=== PATIENT | female | born 1990 | race Hispanic/Latino ===

== ENCOUNTER 2017-02-21 14:46 | Inpatient (IN) | payer MEDICAID, OTHER ==
[2017-02-21 16:30] LABS: BASO # 0.2 K/uL (0.0-0.2); BASO % 1.6 % (0.0-2.0); EOS % 0.4 % (0.0-4.0); HEMATOCRIT 45.7 % (34.0-47.0); LYMPH # 1.6 K/uL (1.0-4.3); LYMPH % 14.3 % (20.0-40.0); MEAN CORPUSCULAR HEMOGLOBIN 30.6 pg (27.0-31.0); MEAN CORPUSCULAR HGB CONC 32.9 g/dL (33.0-37.0); MEAN PLATELET VOLUME 9.1 fL (7.2-11.7); MONO # 0.5 K/uL (0.0-0.8); MONO % 4.4 % (0.0-10.0); WHITE BLOOD COUNT 11.5 K/uL (4.8-10.8)
[2017-02-21 16:44] LABS: RBC URINE 3 /hpf (0-3); URINE BACTERIA RARE (<OCC); URINE BILIRUBIN NEGATIVE (NEGATIVE); URINE BLOOD NEGATIVE (NEGATIVE); URINE COLOR Amber (YELLOW); URINE GLUCOSE (UA) NORMAL (Normal); URINE KETONE TRACE mg/dL (NEGATIVE); URINE LEUKOCYTE ESTERASE NEG Leu/uL (Negative); URINE PROTEIN 2+ mg/dL (NEGATIVE); URINE UROBILINOGEN NORMAL mg/dL (0.2-1.0); WBC URINE 9 /hpf (0-5)
--- NOTE | 2017-02-21 16:52 | C.PDOC ---
History Of Present Illness 26 y/o female presents to the ER for detox from heroin, cocaine, and marijuana abuse. Patient states that she uses 10 bags of heroin up her nose each day. She also states that she takes 1 gram of cocaine each day and 1 marijuana blunt each day. Time Seen by Provider: 02/21/17 15:21 Chief Complaint (Nursing): Psychiatric Evaluation History Per: Patient Onset/Duration Of Symptoms: Hrs Current Symptoms Are (Timing): Still Present Past Medical History Reviewed: Historical Data, Nursing Documentation, Vital Signs Vital Signs: Last Vital Signs Temp 99.0 F 02/21/17 17:52 Pulse 71 02/21/17 17:52 Resp 16 02/21/17 19:08 BP 101/54 L 02/21/17 17:52 Pulse Ox 100 02/21/17 18:06 - Medical History PMH: No Chronic Diseases Surgical History: No Surg Hx Family History: States: No Known Family Hx - Social History Hx Alcohol Use: Yes Hx Substance Use: Yes - Immunization History Hx Tetanus Toxoid Vaccination: No Hx Influenza Vaccination: No Hx Pneumococcal Vaccination: No Review Of Systems Except As Marked, All Systems Reviewed And Found Negative. Physical Exam - Physical Exam Appears: Other (no apparent distress, calm, cooperative) Skin: Other (no tract shannon) Eye(s): bilateral: Abnormal Pupil (dilated pupils) Neck: Supple Chest: Symmetrical Cardiovascular: Rhythm Regular Respiratory: Normal Breath Sounds, No Accessory Muscle Use Neurological/Psych: Oriented x3, Normal Speech, Normal Cognition ED Course And Treatment - Laboratory Results Result Diagrams: 02/21/17 16:11 02/21/17 16:11 Lab Interpretation: Abnormal (tox + cannabanoids, cocaine, opiates) Urine POC: Negative O2 Sat by Pulse Oximetry: 100 Pulse Ox Interpretation: Normal Progress Note: Case discussed with crisis counselor. Pending evaluation. Reevaluation Time: 18:04 Reassessment Condition: Improved - Physician Consult Information Outcome Of Conversation: d/w Crisis Evaluators ok to Adm to Psych Medical Decision Making Medical Decision Making: Impression: Detox from Heroin, Cocaine, and Marijuana Use Plan: Urine Drug Screen cocaine, cannabis and heroine abuse, no tract shannon, suicidal/depression Disposition Doctor Will See Patient In The: Hospital Counseled Patient/Family Regarding: Studies Performed, Diagnosis - Disposition Disposition: HOSPITALIZED Disposition Time: 18:05 Condition: GOOD - Clinical Impression Clinical Impression: Depression, Polysubstance (including opioids) dependence with physiol dependence - Scribe Statement The provider has reviewed the documentation as recorded by the Scribe Linette Roper Provider Attestation: All medical record entries made by the Scribe were at my direction and personally dictated by me. I have reviewed the chart and agree that the record accurately reflects my personal performance of the history, physical exam, medical decision making, and the department course for this patient. I have also personally directed, reviewed, and agree with the discharge instructions and disposition.
[2017-02-21 16:53] LABS: ALCOHOL SERUM < 10 mg/dl (0-10); ALKALINE PHOSPHATASE 46 U/L (38-126); ALT/SGPT 35 U/L (9-52); AST/SGOT 21 U/L (14-36); BILIRUBIN,TOTAL 0.5 mg/dL (0.2-1.3); BLOOD UREA NITROGEN 16 mg/dL (7-17); CALCIUM 8.9 mg/dl (8.6-10.4); CARBON DIOXIDE 31 mmol/L (22-30); CHLORIDE 103 mmol/L (98-107); GFR AFRICAN-AMERICAN > 60; GLUCOSE,RANDOM 118 mg/dL (65-105); POTASSIUM 3.8 mmol/L (3.6-5.2); SODIUM 141 mmol/L (132-148); TOTAL PROTEIN 8.8 g/dL (6.3-8.3)
[2017-02-21 16:55] LABS: ALB/GLOB RATIO 1.1 (1.0-2.1)
--- NOTE | 2017-02-21 19:31 | PCM.BM ---
<Carola Browning - Last Filed: 02/21/17 19:28> Treatment Plan Problems - Problems identified on initial assessmt Depression Date Initiated: 02/21/17 Time Initiated: 19:29 Assessment reference: NA Status: Active Substance Abuse Date Initiated: 02/21/17 Time Initiated: 19:29 Assessment reference: NA Status: Active Suicidal, Adeation Date Initiated: 02/21/17 Time Initiated: 19:29 Assessment reference: NA Status: Active Treatment assets and liabiliti Patient Assests: adapts well, cooperative, self-reliant, ADL independent, physically healthy, negotiates basic needs, cognitively intact Patient Liabilities: live alone (Lived with boyfriend but loss apartment), financial problems (Loss jod and Apartment), substance abuse (Opiates, Cocaine, THC. 10-20 bags of Heroin daily) - Milieu Protocol Maintain good personal hygiene: daily Encourage regular showers, daily Remind patient to perform daily oral care, every shift Assist patient to perform ADL's (Self), other Assist patient to perform ADL's Conduct patient checks and document Observation sheet: Q15 minutes (Safety) Maintain personal safety: every shift Educate patient to report safety concerns to staff, every shift Monitor environment for contraband/sharps Medication safety: Monitor for expected outcome, potential side effects: every shift, Assess barriers to learning: every shift, Assess readiness for medication education: every shift <Tatyana Bajwa - Last Filed: 02/23/17 11:05> - Diagnosis (1) Bipolar affective, depress, severe Status: Acute Interventions: 02/23/17 11:06 * Assess/adjust medications daily and /or as needed * See patient on an individual basis 7x/week to assess level of manic behaviors and stability * Discuss risks, benefits, side effects and alternatives of medications * (2) Opioid use disorder, severe, dependence Status: Acute Interventions: 02/23/17 11:06 * Assess 7x/week regarding severity of withdrawal * Educate regarding risks, benefits, side effects and alternatives of medications * Use Motivational Interviewing for abstinence * Use CBT for relapse prevention * Medication management for withdrawal symptoms * Encourage medication assisted treatment * <Glory Singleton - Last Filed: 02/23/17 11:14> Family Contact Family involvement: Famliy/SO not involved - Goals for Treatment Patient goals for treatment: "I want to go to rehab." Discharge/Continuing Care - Education Needs Education Needs: Patient Medication, Patient Coping Skills, Patient Placement options, Patient Community resources - Discharge Discharge Criteria: Tolerates medication w/o severe side effects, Free of Suicidal thoughts, No longer exhibiting s/s of withdrawal, Reduction of target symptoms Discharge to:: Substance Abuse Rehab - Treatment Team Participation Discussed with Family/SO: No Was Patient/Family/SO present at Treatment Team Meeting: Yes
[2017-02-22] MEDS ORDERED: Buprenorphine Hydrochloride 8 mg SL ONE (01:57)
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
--- NOTE | 2017-02-23 11:06 | PCM.PYCHPN ---
Psychiatric Progress Note - Psychiatric Progress Note Patient seen today, length of contact: 15 min Patient Chief Complaint: I am feeling very irritable.' Problems Identified/Issues Discussed: Patient seen and evaluated, chart reviewed and discussed with the nurse. Patient remained very irritable and agitated. She was speaking to her mother over the phone and suddenly she started yelling and cursing. She reports racing of thoughts and flight of ideas. Patient reports withdrawal symptoms including nausea, headaches, cramps and sweating. She also reports depressed mood and at times feelings of hopelessness and helplessness. Patient is compliant with medications and denies any side effects. Symptoms are improving but need more time to stabilize. Support and psychoeducation given. Medication Change: Yes (subutax taper) Medical Record Reviewed: Yes Mental Status Examination - Cognitive Function Orientation: Person, Place, Situation, Time Memory: Intact Attention: WNL Concentration: Poor Association: WNL Fund of Knowledge: Poor - Mood Mood: Depressed, Anxious - Affect Affect: Broad, Depressed - Speech Speech: Loud, Pressured - Formal Thought Process Formal Thought Process: Circumstantial - Suicidal Ideation Suicidal Ideation: No - Homicidal Ideation Homicidal Ideation: No Goal/Treatment Plan - Goal/Treatment Plan Need for Continued Stay: Discharge may exacerbated symptoms, Severe functional impairment Progress Toward Problem(s) and Goals/Treatment Plan: Bipolar depressed severe without psychotic features Opioid use disorder severe Opioid withdrawal Lexapro 10 mg po daily Subutex taper for opioid detox Patient educated about risks, benefits, side effects & alternatives of meds. Pt verbalized understanding & agreed with the above treatment plan. Therapy in milieu. Attend groups and activities [place] for abstinence and CBT for relapse prevention Support and psychoeducation Refer to after care Start [place] 300 mg PO TID Trazodone 50 gm PO QHS - Smoking Cessation Smoking Cessation Initiated: No
[2017-02-23] MEDS: Buprenorphine Hydrochloride 2 mg SL SCH (14:40)
[2017-02-24] MEDS ORDERED: Influenza Vaccine 60 mcg/0.5 mL SYR (4YR UP) IM ONE (10:00)
[2017-02-24] MEDS ORDERED: Pneumococcal 23-Valent Vaccine IM ONE (10:00)
[2017-02-24] MEDS: Buprenorphine Hydrochloride 2 mg SL SCH (10:05)
--- NOTE | 2017-02-24 11:48 | PCM.PYCHPN ---
Psychiatric Progress Note - Psychiatric Progress Note Patient seen today, length of contact: 15 min Patient Chief Complaint: my anxiety is little better. ' Problems Identified/Issues Discussed: Patient seen and evaluated, chart reviewed and discussed with the nurse. Staff reports that pt remained irritable and agitated, but to a lesser extent than before. She reports some improvement in her mood and reports some improvement in the racing of thoughts. Patient still reports withdrawal symptoms including nausea, headaches, cramps and sweating. Patient is compliant with medications and denies any side effects. Symptoms are improving but need more time to stabilize. Support and psychoeducation given. Medication Change: Yes (subutax taper, change lithium) Medical Record Reviewed: Yes Mental Status Examination - Cognitive Function Orientation: Person, Place, Situation, Time Memory: Intact Attention: WNL Concentration: Poor Association: WNL Fund of Knowledge: Poor - Mood Mood: Depressed, Anxious - Affect Affect: Constricted, Depressed - Speech Speech: Appropriate - Formal Thought Process Formal Thought Process: No Impairment - Suicidal Ideation Suicidal Ideation: No - Homicidal Ideation Homicidal Ideation: No Goal/Treatment Plan - Goal/Treatment Plan Need for Continued Stay: Remain at risks for inpatient hospitalization, Severe functional impairment Progress Toward Problem(s) and Goals/Treatment Plan: Bipolar depressed severe without psychotic features Opioid use disorder severe Opioid withdrawal Lexapro 10 mg po daily Subutex taper for opioid detox Patient educated about risks, benefits, side effects & alternatives of meds. Pt verbalized understanding & agreed with the above treatment plan. Therapy in milieu. Attend groups and activities [place] for abstinence and CBT for relapse prevention Support and psychoeducation Refer to after care Change [place] to 450 mg PO QHS Trazodone 50 gm PO QHS - Smoking Cessation Smoking Cessation Initiated: No
[2017-02-25] MEDS: Buprenorphine Hydrochloride 2 mg SL SCH (10:11)
[2017-02-25] MEDS: Lithium Carbonate 150 MG CAP PO SCH ×2 (11:07→17:22)
--- NOTE | 2017-02-25 11:41 | PCM.PYCHPN ---
Psychiatric Progress Note - Psychiatric Progress Note Patient seen today, length of contact: 16 min Patient Chief Complaint: I am feeling little better.' Problems Identified/Issues Discussed: Patient seen and evaluated, chart reviewed and discussed with the nurse. Patient reports some improvement in her mood and reports some improvement in the racing of thoughts. She reports that the lithium is working. Patient reports improvement in her withdrawal symptoms but still reports anxiety, headaches, and sweating. Had a family meeting with the pt.'s mother who wants pt to go to an inpt rehab, [facility] Patient is compliant with medications and denies any side effects. Symptoms are improving but need more time to stabilize. Support and psychoeducation given. Medication Change: Yes (Subutax taper, lithium level) Medical Record Reviewed: Yes Mental Status Examination - Cognitive Function Orientation: Person, Place, Situation, Time Memory: Intact Attention: WNL Concentration: WNL Association: WNL Fund of Knowledge: Poor - Mood Mood: Anxious - Affect Affect: Constricted - Speech Speech: Soft - Formal Thought Process Formal Thought Process: No Impairment - Suicidal Ideation Suicidal Ideation: No - Homicidal Ideation Homicidal Ideation: No Goal/Treatment Plan - Goal/Treatment Plan Need for Continued Stay: Severe depression anxiety, Severe functional impairment Progress Toward Problem(s) and Goals/Treatment Plan: Bipolar depressed severe without psychotic features Opioid use disorder severe Opioid withdrawal Lexapro 10 mg po daily Subutex taper for opioid detox Patient educated about risks, benefits, side effects & alternatives of meds. Pt verbalized understanding & agreed with the above treatment plan. Therapy in milieu. Attend groups and activities [place] for abstinence and CBT for relapse prevention Support and psychoeducation Refer to after care [place] 450 mg PO QHS Trazodone 50 gm PO QHS - Smoking Cessation Smoking Cessation Initiated: No
--- NOTE | 2017-02-25 14:52 | RAD ---
HISTORY: pending discharge COMPARISON: No prior. TECHNIQUE: Chest PA and lateral FINDINGS: LUNGS: No active pulmonary disease. PLEURA: No significant pleural effusion identified. No pneumothorax apparent. CARDIOVASCULAR: Normal. OSSEOUS STRUCTURES: No significant abnormalities. VISUALIZED UPPER ABDOMEN: Normal. OTHER FINDINGS: None. IMPRESSION: No active disease.
[2017-02-26] MEDS: Buprenorphine Hydrochloride 2 mg SL SCH (09:55)
[2017-02-26] MEDS: Lithium Carbonate 150 MG CAP PO SCH ×2 (10:07→18:09)
--- NOTE | 2017-02-26 12:06 | PCM.PYCHPN ---
Psychiatric Progress Note - Psychiatric Progress Note Patient seen today, length of contact: 16 min Patient Chief Complaint: I am feeling better.' Problems Identified/Issues Discussed: Patient seen and evaluated, chart reviewed and discussed with the nurse. Patient improvement in her mood and withdrawal symptoms but still reports anxiety, and sweating. Patient reports some improvement in irritability, agitation and racing of thoughts. SW is working on rehabilitation. Chest x-ray was completed yesterday and blood was drawn for lithium level. Patient is compliant with medications and denies any side effects. Symptoms are improving but need more time to stabilize. Support and psychoeducation given. Medication Change: Yes (Subutax taper, lithium level) Medical Record Reviewed: Yes Mental Status Examination - Cognitive Function Orientation: Person, Place, Situation, Time Memory: Intact Attention: WNL Concentration: WNL Association: WNL Fund of Knowledge: Poor - Mood Mood: Anxious - Affect Affect: Constricted - Speech Speech: Soft - Formal Thought Process Formal Thought Process: No Impairment - Suicidal Ideation Suicidal Ideation: No - Homicidal Ideation Homicidal Ideation: No Goal/Treatment Plan - Goal/Treatment Plan Need for Continued Stay: Severe depression anxiety, Severe functional impairment Progress Toward Problem(s) and Goals/Treatment Plan: Bipolar depressed severe without psychotic features Opioid use disorder severe Opioid withdrawal Lexapro 10 mg po daily Subutex taper for opioid detox Patient educated about risks, benefits, side effects & alternatives of meds. Pt verbalized understanding & agreed with the above treatment plan. Therapy in milieu. Attend groups and activities [place] for abstinence and CBT for relapse prevention Support and psychoeducation Refer to after care [place] 450 mg PO BID Trazodone 50 gm PO QHS - Smoking Cessation Smoking Cessation Initiated: No
[2017-02-27] MEDS ORDERED: Buprenorphine Hydrochloride 2 mg SL SCH (09:19)
--- NOTE | 2017-02-27 10:02 | PCM.PYCHPN ---
Psychiatric Progress Note - Psychiatric Progress Note Patient seen today, length of contact: 16 min Patient Chief Complaint: I am feeling little better.' Problems Identified/Issues Discussed: Patient seen and evaluated, chart reviewed and discussed with the nurse. Patient reports that the 'lithium is working, and [facility] requires the updates levels. She reports some improvement in her mood swings and reports some improvement in the racing of thoughts. Patient reports improvement in her withdrawal symptoms but still reports anxiety, and sweating. She is excited to go to the inpt rehab, [facility] Patient is compliant with medications and denies any side effects. Symptoms are improving but need more time to stabilize. Support and psychoeducation given. Medication Change: Yes (Subutax taper, lithium level) Medical Record Reviewed: Yes Mental Status Examination - Cognitive Function Orientation: Person, Place, Situation, Time Memory: Intact Attention: WNL Concentration: WNL Association: WNL Fund of Knowledge: Poor - Mood Mood: Anxious - Affect Affect: Constricted - Speech Speech: Soft - Formal Thought Process Formal Thought Process: No Impairment - Suicidal Ideation Suicidal Ideation: No - Homicidal Ideation Homicidal Ideation: No Goal/Treatment Plan - Goal/Treatment Plan Need for Continued Stay: Severe depression anxiety, Severe functional impairment Progress Toward Problem(s) and Goals/Treatment Plan: Bipolar depressed severe without psychotic features Opioid use disorder severe Opioid withdrawal Lexapro 10 mg po daily Subutex taper for opioid detox Patient educated about risks, benefits, side effects & alternatives of meds. Pt verbalized understanding & agreed with the above treatment plan. Therapy in milieu. Attend groups and activities [place] for abstinence and CBT for relapse prevention Support and psychoeducation Refer to after care [place] 450 mg PO BID Trazodone 50 gm PO QHS [place] level - Smoking Cessation Smoking Cessation Initiated: No
[2017-02-27] MEDS: Lithium Carbonate 150 MG CAP PO SCH ×2 (10:54→17:30)
[2017-02-28] MEDS: Lithium Carbonate 150 MG CAP PO SCH (09:21)
--- NOTE | 2017-02-28 14:56 | PCM.PYCHPN ---
Psychiatric Progress Note - Psychiatric Progress Note Patient seen today, length of contact: 16 min Patient Chief Complaint: "I'm depressed" Problems Identified/Issues Discussed: Patient was seen. Chart was reviewed important content noted. Nurse input received that lithium level is 0.4. Patient patient stated that she is still feeling depressed. No events overnight. Patient reported difficulty in sleeping and feeling tired. However, she is eating well. Denies suicidal or homicidal ideations. Patient does not report hallucinations. No delusions elicited. No paranoia elicited. Patient has remained in good clinical and behavioral control. Symptoms are improving, but needs more time to stabilize. Patient is finding medications beneficial and would like to continue with treatment plan. Patient appreciated that treatment team is trying to help. DSM 5 Symptoms Update: Bipolar depressed severe without psychotic features Opioid use disorder severe Opioid withdrawal Medication Change: Yes (Subutax taper, lithium level) Medical Record Reviewed: Yes Mental Status Examination - Cognitive Function Orientation: Person, Place, Situation, Time Memory: Intact Attention: WNL Concentration: WNL Association: WNL Fund of Knowledge: Poor Decription of patient's judgement and insights: Good/good - Mood Mood: Depressed, Anxious - Affect Affect: Constricted - Speech Speech: Soft - Formal Thought Process Formal Thought Process: No Impairment Psychotic Thoughts and Behaviors: Denied - Suicidal Ideation Suicidal Ideation: No - Homicidal Ideation Homicidal Ideation: No Goal/Treatment Plan - Goal/Treatment Plan Need for Continued Stay: Severe depression anxiety, Severe functional impairment Progress Toward Problem(s) and Goals/Treatment Plan: Lexapro 10 mg po daily Subutex taper for opioid detox increase [place] 600 mg po HS and continue [place] 450 mg po am. [place] level repeated on 03/03 Patient educated about risks, benefits, side effects & alternatives of meds. Pt verbalized understanding & agreed with the above treatment plan. Therapy in milieu. Attend groups and activities [place] for abstinence and CBT for relapse prevention Support and psychoeducation Refer to after care [place] 450 mg PO BID Trazodone 50 gm PO QHS [place] level Estimated Date of D/C: 03/04/17 - Smoking Cessation Smoking Cessation Initiated: Yes
[2017-03-01 05:24] VITALS: RESP 18; TEMP 96.6; O2SAT 99
[2017-03-01] MEDS: Lithium Carbonate 150 MG CAP PO SCH (09:25)
--- NOTE | 2017-03-01 12:25 | PCM.PYCHPN ---
Psychiatric Progress Note - Psychiatric Progress Note Patient seen today, length of contact: 16 min Patient Chief Complaint: "i have sleep issues" Problems Identified/Issues Discussed: Still doing OK but c/o insomnia Seroquel increased Other options discussed Calmer Will go to rehab on Thu Li level and TFTs were ordered but she wanted to do it sooner, not in AM bc she wants to sleep Medication Change: Yes Medical Record Reviewed: Yes Mental Status Examination - Cognitive Function Orientation: Person, Place, Situation, Time Memory: Intact Attention: WNL Concentration: WNL Association: WNL Fund of Knowledge: Poor - Mood Mood: Depressed, Anxious - Affect Affect: Constricted - Speech Speech: Soft - Formal Thought Process Formal Thought Process: No Impairment - Suicidal Ideation Suicidal Ideation: No - Homicidal Ideation Homicidal Ideation: No Goal/Treatment Plan - Goal/Treatment Plan Need for Continued Stay: Severe depression anxiety, Severe functional impairment Progress Toward Problem(s) and Goals/Treatment Plan: Continue meds Li level 0.7 Support and ND Attend groups Estimated Date of D/C: 03/04/17
[2017-03-01 17:57] LABS: FREE T4 0.76 ng/dL (0.78-2.19)
[2017-03-01 18:48] LABS: THYROID STIMULATING HORMONE 1.86 mIU/L (0.46-4.68)
[2017-03-02] MEDS: Lithium Carbonate 150 MG CAP PO SCH (09:14)
--- NOTE | 2017-03-02 18:05 | PCM.PYCHPN ---
Psychiatric Progress Note - Psychiatric Progress Note Patient seen today, length of contact: 16 min Patient Chief Complaint: "I have sleep issues" Problems Identified/Issues Discussed: Patient was seen. Chart was reviewed important content noted. Nurse input received that lithium level is 0.7. Patient patient stated that she is still feeling depressed adn had difficulty in sleep. Her TSH was low. No events overnight. Patient preoccupied with somatic complaints such as feeling tired. However, she is eating well. Denies suicidal or homicidal ideations. Patient does not report hallucinations. No delusions elicited. No paranoia elicited. Patient has remained in good clinical and behavioral control. Symptoms are improving, but needs more time to stabilize. Patient is finding medications beneficial and would like to continue with treatment plan. Patient appreciated that treatment team is trying to help. DSM 5 Symptoms Update: Bipolar d/o Opioid use d/o, severe, withdrawal symptoms Medication Change: Yes (increase in Seroquel) Medical Record Reviewed: Yes Mental Status Examination - Cognitive Function Orientation: Person, Place, Situation, Time Memory: Intact Attention: WNL Concentration: WNL Association: WNL Fund of Knowledge: WN Decription of patient's judgement and insights: limited/limited - Mood Mood: Depressed, Anxious - Affect Affect: Constricted - Speech Speech: Soft - Formal Thought Process Formal Thought Process: No Impairment Psychotic Thoughts and Behaviors: cooperative - Suicidal Ideation Suicidal Ideation: No Plan: denied - Homicidal Ideation Homicidal Ideation: No Plan: denied Goal/Treatment Plan - Goal/Treatment Plan Need for Continued Stay: Severe depression anxiety, Severe functional impairment Progress Toward Problem(s) and Goals/Treatment Plan: Increase Seroquel 300 mg po HS Continue other meds. Consult medicine team for low TSH Patient educated about risks, benefits, side effects & alternatives of meds. Pt verbalized understanding & agreed with the above treatment plan. Therapy in milieu. Attend groups and activities MA for abstinence and CBT for relapse prevention Support and psychoeducation Refer to after care l Estimated Date of D/C: 03/04/17 - Smoking Cessation Smoking Cessation Initiated: Yes
[2017-03-03] MEDS: Lithium Carbonate 150 MG CAP PO SCH (10:17)
--- NOTE | 2017-03-03 11:08 | PCM.PYCHPN ---
Psychiatric Progress Note - Psychiatric Progress Note Patient seen today, length of contact: 16 min Patient Chief Complaint: I am feeling little better.' Problems Identified/Issues Discussed: Patient seen and evaluated, chart reviewed and discussed with the nurse. Patient reports improvement in her mood and improvement in her withdrawal symptoms. She is excited to go to the inpt rehab, '[facility] She denies any SI/HI/AVH. Patient is compliant with medications and denies any side effects. Symptoms are improving but need more time to stabilize. Support and psychoeducation given. Medication Change: No Medical Record Reviewed: Yes Mental Status Examination - Cognitive Function Orientation: Person, Place, Situation, Time Memory: Intact Attention: WNL Concentration: WNL Association: WNL Fund of Knowledge: WNL - Mood Mood: Anxious - Affect Affect: Constricted - Speech Speech: Soft - Formal Thought Process Formal Thought Process: No Impairment - Suicidal Ideation Suicidal Ideation: No - Homicidal Ideation Homicidal Ideation: No Goal/Treatment Plan - Goal/Treatment Plan Need for Continued Stay: Severe depression anxiety, Severe functional impairment Progress Toward Problem(s) and Goals/Treatment Plan: Bipolar depressed severe without psychotic features Opioid use disorder severe Opioid withdrawal Lexapro 10 mg po daily Subutex taper for opioid detox Patient educated about risks, benefits, side effects & alternatives of meds. Pt verbalized understanding & agreed with the above treatment plan. Therapy in milieu. Attend groups and activities MA for abstinence and CBT for relapse prevention Support and psychoeducation Refer to after care Arnold Line 450 mg PO daily Arnold Line 600 mg PO QHS Trazodone 50 gm PO QHS [place] Line level Estimated Date of D/C: 03/04/17 - Smoking Cessation Smoking Cessation Initiated: No
[2017-03-03 15:50] VITALS: BP 120/78; PULSE 102
--- NOTE | 2017-03-03 22:00 | CP.PCM.CON ---
<Lenny Hayden - Last Filed: 03/03/17 22:35> History of Present Illness - History of Present Illness History of Present Illness: Medicine Consult Note CC: Double Vision HPI: Patient is a 26F who is admitted to the psych unit w/ a history of depression, crack-cocaine abuse, heroine use. She states that about 3 hours ago she had acute onset of double vision. She was coloring when all of a sudden the images became blurry. She states she is able to focus when she covers one of her eyes. She is unable to keep her balance unless she closes one eye. She is also complaining of a SPEARS in the back of her head that started after the onset of the blurry/double vision. The last time she used drugs was on the 19 of February. She denies any prior episodes like this. She is not nauseas and is not vomiting. Denies any dizziness, denies room spinning. No trouble hearing. No weakness or numbness. No tingling. ROS: Per HPI PMH: depression PSH: None FH: unremarkable: SH: Uses marijuana, heroine, and crack All: None Review of Systems - Review of Systems Review of Systems: per HPI Past Patient History - Past Social History Smoking Status: Heavy Smoker > 10 Cigarettes Daily - CARDIAC Hx Cardiac Disorders: No (Patient denied) Hx Hypertension: No (Patient denied) - PULMONARY Hx Tuberculosis: No (Patient denied) - NEUROLOGICAL HX Cerebrovascular Accident: No (Patient denied) Hx Seizures: No (Patient denied) - HEMATOLOGICAL/ONCOLOGICAL Hx Cancer: No (Patient denied) Hx Human Immunodeficiency Virus (HIV): No (Patient denied) - GENITOURINARY/GYNECOLOGICAL Hx Sexually Transmitted Disorders: No (Patient denied) - PSYCHIATRIC Hx Substance Use: Yes - SURGICAL HISTORY Hx Surgeries: No - ANESTHESIA Hx Anesthesia: No Hx Anesthesia Reactions: No Meds Allergies/Adverse Reactions: Allergies Allergy/AdvReac Type Severity Reaction Status Date / Time No Known Allergies Allergy Verified 02/21/17 15:29 - Medications Medications: Current Medications Clonidine HCl (Catapres) 0.1 mg PO Q8 PRN PRN Reason: COWS Score More or Equal to 5 Last Admin: 03/02/17 00:29 Dose: 0.1 mg Escitalopram Oxalate (Lexapro) 10 mg PO DAILY [facility] Last Admin: 03/03/17 10:02 Dose: 10 mg Hydroxyzine HCl (Atarax) 25 mg PO TID PRN PRN Reason: Anxiety Last Admin: 03/02/17 17:33 Dose: 25 mg Ibuprofen (Motrin Tab) 400 mg PO Q6H PRN PRN Reason: Pain, moderate (4-7) Last Admin: 03/03/17 17:21 Dose: 400 mg [place] Carbonate (Lithobid) 600 mg PO HS [facility] Last Admin: 03/03/17 21:48 Dose: 600 mg [place] Carbonate ([place] Carbonate 150mg) 450 mg PO DAILY [facility] Last Admin: 03/03/17 10:17 Dose: 450 mg Loperamide HCl (Imodium) 2 mg PO Q8 PRN PRN Reason: Diarrhea Ondansetron HCl (Zofran Tab) 4 mg PO Q8 PRN PRN Reason: Nausea/Vomiting Quetiapine Fumarate (Seroquel) 300 mg PO HS [facility] Last Admin: 03/03/17 21:48 Dose: 300 mg Trazodone HCl (Desyrel) 50 mg PO [facility] Last Admin: 03/03/17 21:48 Dose: 50 mg Physical Exam - Constitutional Appears: Well, Non-toxic, No Acute Distress Additional comments: nervous - Head Exam Head Exam: ATRAUMATIC, NORMAL INSPECTION, NORMOCEPHALIC - Eye Exam Eye Exam: EOMI, Normal appearance, PERRL. absent: Conjunctival injection, Nystagmus, Periorbital swelling, Periorbital tenderness, Scleral icterus Pupil Exam: Mydriatic, NORMAL ACCOMODATION, PERRL. absent: Fixed, Irregular, Miosis, Unequal - ENT Exam ENT Exam: Mucous Membranes Moist - Respiratory Exam Respiratory Exam: Clear to Auscultation Bilateral, NORMAL BREATHING PATTERN - Cardiovascular Exam Cardiovascular Exam: REGULAR RHYTHM - GI/Abdominal Exam GI & Abdominal Exam: Normal Bowel Sounds, Soft. absent: Distended, Tenderness - Neurological Exam Neurological exam: Alert, CN II-XII Intact, Oriented x3 - Expanded Neurological Exam Expanded Neurological exam: Ataxia (would lose her balance when asked to walk a straight line and have to use the wall to catch herself) Patient oriented to: person, place, time Speech: Fluid Speech Cranial nerves: EOM's Intact: Normal, Facial Palsey w/Forehead Movement: Normal , Facial Palsey w/o Forehead Movement: Normal, Facial Sensation: Abnormal Right (states her sensation to light touch is impaired compared to the left), Nystagmus: Normal Cerebellar Function: Finger to Nose: Normal, Heel to Cobb: Normal, Romberg: Normal Upper motor neuron: Pronator Drift: Normal, Sensory Extinction: Abnormal Right ( see above) Sensory exam: Lower Extremity Light Touch: Normal, Upper Extremity Light Touch: Normal DTR: Achilles Tendon Left: 4+, Achilles Tendon Right: 4+, Bicep Left: 4+, Bicep Right: 4+, Brachioradialis Left: 4+, Brachioradialis Right: 4+, Patellar Left: 4 +, Patellar Right: 4+, Tricep Left: 4+, Tricep Right: 4+ Coma Scale Eye Opening: SPONTANEOUS Coma Scale Motor Response: OBEYS COMMANDS Coma Scale Verbal: Oriented Coma Scale Total: 15 - Psychiatric Exam Psychiatric exam: Normal Affect, Normal Mood - Skin Skin Exam: Dry, Intact, Normal Color, Warm Results - Vital Signs Recent Vital Signs: Last Vital Signs Temp 96.6 F L 03/01/17 05:00 Pulse 102 H 03/03/17 15:49 Resp 18 03/01/17 05:00 BP 120/78 03/03/17 15:49 Pulse Ox 99 03/01/17 05:00 - Labs Result Diagrams: 02/21/17 16:11 02/21/17 16:11 Assessment & Plan (1) Blurry vision Assessment and Plan: [place] level - F/U CT head - F/U CBC/CMP Both eyes were moving together, no weakness in the EOM was noted. Blurry vision may be factitious Presentation for Serotonin syndrome is unlikely, but will check drug levels. Status: Acute Priority: Medium <Eliot Mason P - Last Filed: 03/04/17 06:44> Meds - Medications Medications: Current Medications Clonidine HCl (Catapres) 0.1 mg PO Q8 PRN PRN Reason: COWS Score More or Equal to 5 Last Admin: 03/02/17 00:29 Dose: 0.1 mg Escitalopram Oxalate (Lexapro) 10 mg PO DAILY [facility] Last Admin: 03/03/17 10:02 Dose: 10 mg Hydroxyzine HCl (Atarax) 25 mg PO TID PRN PRN Reason: Anxiety Last Admin: 03/02/17 17:33 Dose: 25 mg Ibuprofen (Motrin Tab) 400 mg PO Q6H PRN PRN Reason: Pain, moderate (4-7) Last Admin: 03/03/17 17:21 Dose: 400 mg [place] Carbonate (Lithobid) 600 mg PO HS [facility] Last Admin: 03/03/17 21:48 Dose: 600 mg [place] Carbonate ([place] Carbonate 150mg) 450 mg PO DAILY [facility] Last Admin: 03/03/17 10:17 Dose: 450 mg Loperamide HCl (Imodium) 2 mg PO Q8 PRN PRN Reason: Diarrhea Ondansetron HCl (Zofran Tab) 4 mg PO Q8 PRN PRN Reason: Nausea/Vomiting Quetiapine Fumarate (Seroquel) 300 mg PO HS [facility] Last Admin: 03/03/17 21:48 Dose: 300 mg Trazodone HCl (Desyrel) 50 mg PO HS [facility] Last Admin: 03/03/17 21:48 Dose: 50 mg Results - Vital Signs Recent Vital Signs: Last Vital Signs Temp 96.6 F L 03/01/17 05:00 Pulse 102 H 03/03/17 15:49 Resp 18 03/01/17 05:00 BP 120/78 03/03/17 15:49 Pulse Ox 99 03/01/17 05:00 - Labs Result Diagrams: 03/03/17 23:09 03/03/17 23:09 Labs: Laboratory Results - last 24 hr 03/03/17 03/03/17 03/03/17 23:09 23:09 23:09 WBC 16.3 H RBC 4.59 Hgb 13.9 Hct 41.9 MCV 91.2 MCH 30.2 MCHC 33.1 RDW 13.7 Plt Count 359 MPV 8.2 Neut % (Auto) 77.4 H Lymph % (Auto) 14.2 L [place] % (Auto) 7.8 Eos % (Auto) 0.4 Baso % (Auto) 0.2 Neut # 12.6 H Lymph # 2.3 [place] # 1.3 H Eos # 0.1 Baso # 0.0 Sodium 136 Potassium 3.9 Chloride 102 Carbon Dioxide 25 Anion Gap 13 BUN 25 H Creatinine 1.1 Est GFR ( Amer) > 60 Est GFR (Non-Af Amer) 60 Random Glucose 100 Calcium 8.8 Total Bilirubin 0.6 AST 19 ALT 25 Alkaline Phosphatase 46 Total Protein 8.1 Albumin 4.7 Globulin 3.4 Albumin/Globulin Ratio 1.4 [place] 0.5 L Attending/Attestation - Attestation I have personally seen and examined this patient.: Yes I have fully participated in the care of the patient.: Yes I have reviewed all pertinent clinical information: Yes Notes (Text): Assessment C/o Diplopia, but no clinical weakness in eye movements, no defect in field of vision, patient has a plan to be transferred to rehab today could contribute to anxiety and functional symptoms Clinically no serotonin syn, lithium levels not high Leucocytosis not of clinical significance Bipolar, geraldo, h/o cocaine and heroin abuse Tobacco abuse Plan Re eval in am Neurology consult Patient counselled about substance abuse
[2017-03-03 23:13] LABS: BASO % 0.2 % (0.0-2.0); EOS # 0.1 K/uL (0.0-0.7); EOS % 0.4 % (0.0-4.0); HEMATOCRIT 41.9 % (34.0-47.0); LYMPH # 2.3 K/uL (1.0-4.3); LYMPH % 14.2 % (20.0-40.0); MEAN CELL VOLUME 91.2 fL (81.0-99.0); MEAN CORPUSCULAR HEMOGLOBIN 30.2 pg (27.0-31.0); MEAN CORPUSCULAR HGB CONC 33.1 g/dL (33.0-37.0); MEAN PLATELET VOLUME 8.2 fL (7.2-11.7); MONO # 1.3 K/uL (0.0-0.8); MONO % 7.8 % (0.0-10.0); NRBC % 0.2 % (0.0-2.0); RED CELL DISTRIBUTION WIDTH 13.7 % (11.5-14.5); WHITE BLOOD COUNT 16.3 K/uL (4.8-10.8)
[2017-03-03 23:26] LABS: ALB/GLOB RATIO 1.4 (1.0-2.1); ALKALINE PHOSPHATASE 46 U/L (38-126); ALT/SGPT 25 U/L (9-52); AST/SGOT 19 U/L (14-36); BILIRUBIN,TOTAL 0.6 mg/dL (0.2-1.3); BLOOD UREA NITROGEN 25 mg/dL (7-17); CALCIUM 8.8 mg/dl (8.6-10.4); CARBON DIOXIDE 25 mmol/L (22-30); CHLORIDE 102 mmol/L (98-107); GFR AFRICAN-AMERICAN > 60; GLUCOSE,RANDOM 100 mg/dL (65-105); POTASSIUM 3.9 mmol/L (3.6-5.2); SODIUM 136 mmol/L (132-148); TOTAL PROTEIN 8.1 g/dL (6.3-8.3)
--- NOTE | 2017-03-03 23:55 | CT ---
EXAM: CT Head Without Intravenous Contrast EXAM DATE/TIME: 03/03/2017 10:40 PM CLINICAL HISTORY: 26 years old, female; Signs and symptoms; Visual disturbance; Additional info: Blurry vision TECHNIQUE: Axial computed tomography images of the head/brain without intravenous contrast. All CT scans at this facility use one or more dose reduction techniques, viz.: automated exposure control; ma/kV adjustment per patient size (including targeted exams where dose is matched to indication; i.e. head); or iterative reconstruction technique. COMPARISON: There are no prior studies for comparison. FINDINGS: Brain: Ventricles are normal in size and configuration. There is no midline shift. There are no intra-axial or extra-axial mass lesions or areas of hemorrhage. There are no abnormal fluid collections. Choi-white differentiation is maintained. Ventricles: See above. Bones: Cranial vault is intact. Soft tissues: unremarkable Sinuses: There is no acute sinusitis. Ears and mastoids: Middle ears and mastoids are unremarkable Orbits: Orbital contents are unremarkable. IMPRESSION: No acute intracranial abnormality
--- NOTE | 2017-03-04 09:03 | CP.PCM.PN ---
<Carolyn Cunningham - Last Filed: 03/04/17 09:08> Subjective - Date & Time of Evaluation Date of Evaluation: 03/04/17 Time of Evaluation: 09:00 - Subjective Subjective: Medicine Progress Note: Hospitalist Service Patient seen and examined at bedside. Per nursing no acute events overnight. States that blurry vision has improved. Patient reports that she has not been sleeping. Sleeps approximately 1 hour a night, which she attributes to her symptoms. Also admits to feeling palpitations. Denies headaches, dizziness, cp, sob, changes in speech, abdominal pain, urinary symptoms, changes in bowel habits. Objective - Vital Signs/Intake and Output Vital Signs (last 24 hours): Temp Pulse Resp BP Pulse Ox 96.6 F L 102 H 18 120/78 99 03/01/17 05:00 03/03/17 15:49 03/01/17 05:00 03/03/17 15:49 03/01/17 05:00 - Medications Medications: Current Medications Clonidine HCl (Catapres) 0.1 mg PO Q8 PRN PRN Reason: COWS Score More or Equal to 5 Last Admin: 03/02/17 00:29 Dose: 0.1 mg Escitalopram Oxalate (Lexapro) 10 mg PO DAILY [facility] Last Admin: 03/03/17 10:02 Dose: 10 mg Hydroxyzine HCl (Atarax) 25 mg PO TID PRN PRN Reason: Anxiety Last Admin: 03/02/17 17:33 Dose: 25 mg Ibuprofen (Motrin Tab) 400 mg PO Q6H PRN PRN Reason: Pain, moderate (4-7) Last Admin: 03/03/17 17:21 Dose: 400 mg [place] Carbonate (Lithobid) 600 mg PO HS [facility] Last Admin: 03/03/17 21:48 Dose: 600 mg [place] Carbonate ([place]zo Carbonate 150mg) 450 mg PO DAILY [facility] Last Admin: 03/03/17 10:17 Dose: 450 mg Loperamide HCl (Imodium) 2 mg PO Q8 PRN PRN Reason: Diarrhea Ondansetron HCl (Zofran Tab) 4 mg PO Q8 PRN PRN Reason: Nausea/Vomiting Quetiapine Fumarate (Seroquel) 300 mg PO [facility] Last Admin: 03/03/17 21:48 Dose: 300 mg Trazodone HCl (Desyrel) 50 mg PO [facility] Last Admin: 03/03/17 21:48 Dose: 50 mg - Labs Labs: 03/03/17 23:09 03/03/17 23:09 - Constitutional Appears: Well - Head Exam Head Exam: ATRAUMATIC, NORMAL INSPECTION, NORMOCEPHALIC - Eye Exam Eye Exam: EOMI, Normal appearance - ENT Exam ENT Exam: Mucous Membranes Moist - Neck Exam Neck Exam: Full ROM - Respiratory Exam Respiratory Exam: Clear to Ausculation Bilateral, NORMAL BREATHING PATTERN. absent: Rales, Rhonchi, Wheezes - Cardiovascular Exam Cardiovascular Exam: REGULAR RHYTHM, +S1, +S2 - GI/Abdominal Exam GI & Abdominal Exam: Soft, Normal Bowel Sounds. absent: Guarding, Rigid, Tenderness - Rectal Exam Rectal Exam: Deferred - Extremities Exam Extremities Exam: Full ROM, Normal Capillary Refill, Normal Inspection - Back Exam Back Exam: NORMAL INSPECTION - Neurological Exam Neurological Exam: Alert, Awake, CN II-XII Intact, Normal Gait, Oriented x3 - Psychiatric Exam Psychiatric exam: Anxious, Normal Affect, Normal Mood - Skin Skin Exam: Dry, Normal Color, Warm Assessment and Plan (1) Blurry vision Assessment & Plan: CT head: negative for intracranial pathology Lab work reviewed We will recommend opthamology evaluation prior to discharge Also recommending full neurological evaluation prior to discharge Dr De Dios, Neurology, consulted, help appreciated Per nursing, patient is refusing further lab work. Medicine will sign off, please reconsult if needed. Thank you Status: Acute (2) Bipolar affective, depress, severe Assessment & Plan: * Management per psych team Status: Acute (3) Polysubstance (including opioids) dependence with physiol dependence Assessment & Plan: * Management per psych team Status: Acute <Hermann Persaud - Last Filed: 03/04/17 17:00> Objective - Vital Signs/Intake and Output Vital Signs (last 24 hours): Temp Pulse Resp BP Pulse Ox 96.6 F L 102 H 18 120/78 99 03/01/17 05:00 03/03/17 15:49 03/01/17 05:00 03/03/17 15:49 03/01/17 05:00 - Labs Labs: 03/03/17 23:09 03/03/17 23:09 Attending/Attestation - Attestation I have personally seen and examined this patient.: No I have fully participated in the care of the patient.: No I have reviewed all pertinent clinical information, including history, physical exam and plan: Yes Notes (Text): 03/04/17 16:54 Please note that I did not have the opportunity to examine this paitient as she was discharged before I had the opportunity to do so. However, I did discuss this patient with Dr. Mason and his examination findings as well as review of her CT Head. She needed to be evaluated by Opthalmology and Neurology PRIOR to her discharge and this was coveyed to the medical historian working with me and this was conveyed by her in the documentation above. As patient was denying further testing, medicine team had signed off with the above recommendation. Hermann Persaud D.O.
[2017-03-04] MEDS: Lithium Carbonate 150 MG CAP PO SCH (09:53)
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
== END 2017-03-04 11:17 | disposition home or self-care (01) | DRG 895 ==
LOC: C.ER 14:46 → C.5E 18:02
PROC: HZ2ZZZZ Detoxification Services for Substance Abuse Treatment (ICD-10-PCS; principal; 2017-02-21)
PROC: HZ52ZZZ Individual Psychotherapy for Substance Abuse Treatment, Cognitive-Behavioral (ICD-10-PCS; 2017-02-21)
PROC: HZ93ZZZ Pharmacotherapy for Substance Abuse Treatment, Antabuse (ICD-10-PCS; 2017-02-21)
PROC: HZ56ZZZ Individual Psychotherapy for Substance Abuse Treatment, Psychoeducation (ICD-10-PCS; 2017-02-21)
PROC: HZ59ZZZ Individual Psychotherapy for Substance Abuse Treatment, Supportive (ICD-10-PCS; 2017-02-21)
DX: F11.23 Opioid dependence with withdrawal (principal); F31.4 Bipolar disorder, current episode depressed, severe, without psychotic features; F12.10 Cannabis abuse, uncomplicated; F41.9 Anxiety disorder, unspecified; G47.00 Insomnia, unspecified; H53.2 Diplopia; F14.10 Cocaine abuse, uncomplicated; Z72.0 Tobacco use; Z79.899 Other long term (current) drug therapy